=== PATIENT | female | born 1995 | race Caucasian/White ===

== ENCOUNTER 2017-09-16 07:26 | Inpatient (IN) | payer OTHER ==
[2017-09-16] MEDS: ONDANSETRON 4 MG INJ IV ×2 (09:29→14:13)
[2017-09-16 10:01] LABS: ADD MAN DIFF? NO
[2017-09-16 10:08] LABS: ADD UMIC NO; UR ASCORBIC ACID NEGATIVE (NEGATIVE); UR BACTERIA FEW /HPF (NONE SEEN); UR BILIRUBIN (Dip) NEGATIVE (NEGATIVE); UR BLOOD (Dip) NEGATIVE (NEGATIVE); UR CLARITY SLIGHTLY CLOUDY (CLEAR); UR COLOR YELLOW (YELLOW); UR GLUCOSE (Dip) NEGATIVE (NEGATIVE); UR KETONES (Dip) NEGATIVE (NEGATIVE); UR LEUKOCYTE ESTERASE (Dip) NEGATIVE Leu/ul (NEGATIVE); UR NITRITE (Dip) NEGATIVE (NEGATIVE); UR RBC 1 /HPF (0-5); UR SPECIFIC GRAVITY (Dip) 1.023 (1.003-1.030); UR SQUAMOUS EPITHELIAL CELL MODERATE /HPF (FEW); UR TOTAL PROTEIN (Dip) NEGATIVE (NEGATIVE); UR UROBILINOGEN (Dip) 2+ mg/dL (NEGATIVE); UR WBC 0 /HPF (0-5)
[2017-09-16 10:14] LABS: BASOPHILS % 0.3 % (0.0-2.0); EOSINOPHILS # 0.1 10^3/ul (0.0-0.5); EOSINOPHILS % 0.8 % (0.0-7.0); HEMATOCRIT 40.4 % (37.0-47.0); HEMOGLOBIN 14.3 g/dl (12.0-16.0); LYMPHOCYTES # 3.9 10^3/ul (0.8-2.9); LYMPHOCYTES % 33.2 % (15.0-51.0); MEAN CORPUSCULAR HEMOGLOBIN 31.8 pg (29.0-33.0); MEAN CORPUSCULAR HGB CONC 35.4 g/dl (32.0-37.0); MEAN PLATELET VOLUME 9.9 fl (7.4-10.4); MONOCYTE # 0.8 10^3/ul (0.3-0.9); MONOCYTES % 6.9 % (0.0-11.0); NEUTROPHIL # 6.8 10^3/ul (1.6-7.5); NEUTROPHILS % 58.5 % (39.0-77.0); PLATELET COUNT 260 10^3/UL (140-415); RED BLOOD COUNT 4.49 10^6/ul (4.20-5.40); RED CELL DISTRIBUTION WIDTH 11.9 % (11.5-14.5)
[2017-09-16 10:14] LABS: WHITE BLOOD COUNT 11.6 10^3/ul (4.8-10.8)
[2017-09-16 10:24] LABS: ALANINE AMINOTRANSFERASE 43 IU/L (13-69); ALBUMIN 4.3 g/dl (3.3-4.9); ALBUMIN/GLOBULIN RATIO 1.16; ALKALINE PHOSPHATASE 87 IU/L (42-121); ANION GAP 14 (8-16); ASPARTATE AMINO TRANSFERASE 29 IU/L (15-46); BILIRUBIN,INDIRECT 0.7 mg/dl (0-1.1); BILIRUBIN,TOTAL 0.7 mg/dl (0.2-1.3); BLOOD UREA NITROGEN 17 mg/dl (7-20); CALCIUM 9.7 mg/dl (8.4-10.2); CARBON DIOXIDE 26 mmol/L (21-31); CHLORIDE 106 mmol/L (97-110); CREATININE 0.77 mg/dl (0.44-1.00); GLUCOSE 91 mg/dl (70-220); LIPASE 104 U/L (23-300); POTASSIUM 3.9 mmol/L (3.5-5.1); SODIUM 142 mmol/L (135-144)
[2017-09-16] MEDS: SOD CHLORIDE 0.9% 1,000 ML IV (10:25)
[2017-09-16] MEDS: PIPER-TAZO 3.375 GM IV (PMX) 50 ML IVPB (10:25)
[2017-09-16] MEDS: morphine 2 MG INJ IV ×2 (10:25→14:41)
[2017-09-16] MEDS ORDERED: MIDAZOLAM 1 MG/ML 2 ML INJ (13:04)
[2017-09-16] MEDS: BUPIVACAINE 0.5%/EPI (SDV) 30 ML INJ (13:27)
[2017-09-16] MEDS ORDERED: ONDANSETRON 4 MG INJ (13:43)
[2017-09-16] MEDS ORDERED: KETOROLAC 30 MG INJ (13:49)
[2017-09-16] MEDS ORDERED: PROPOFOL 20 ML (13:49)
[2017-09-16] MEDS ORDERED: NEOSTIGMINE 3 MG/3 ML SYRINGE (13:49)
[2017-09-16] MEDS ORDERED: LIDOCAINE 2% (SDV) 5 ML INJ (13:49)
[2017-09-16] MEDS ORDERED: ROCURONIUM 50 MG INJ (13:49)
[2017-09-16] MEDS ORDERED: GLYCOPYRROLATE 0.4 MG INJ (13:49)
[2017-09-16] MEDS ORDERED: METOCLOPRAMIDE 10 MG INJ IV (14:00)
[2017-09-16] MEDS ORDERED: FENTAnyl 50 MCG/ML VIAL IV (14:00)
[2017-09-16] MEDS ORDERED: ONDANSETRON 4 MG INJ IV (14:00)
[2017-09-16] MEDS ORDERED: OXYCODONE/ACETAMINOPHEN (5/325) TAB PO ×2 (14:00)
[2017-09-16] MEDS ORDERED: HYDROmorphONE (0.2 MG/ML) 10ML SYG IV ×2 (14:00→14:04)
[2017-09-16] MEDS ORDERED: MEPERIDINE 25 MG INJ (14:06)
[2017-09-16] MEDS: HYDROmorphONE (0.2 MG/ML) 10ML SYG IV ×4 (14:12→14:37)
[2017-09-16] MEDS: MEPERIDINE 25 MG INJ IV (14:13)
[2017-09-16] MEDS: DIPHENHYDRAMINE 50 MG INJ IV (14:31)
== END 2017-09-16 15:30 | disposition home or self-care (01) | DRG 343 ==
LOC: FTE 07:26 → REC 11:32
PROC: 0DTJ4ZZ Resection of Appendix, Percutaneous Endoscopic Approach (ICD-10-PCS; principal; 2017-09-16 13:00)
DX: K35.80 Unspecified acute appendicitis (principal); E66.01 Morbid (severe) obesity due to excess calories; Z68.30 Body mass index [BMI] 30.0-30.9, adult
CPT/HCPCS: 71045; 74176; 80053; 81001; 81003; 83690; 85025; 88304; 93005; 96374; 96375; 99285-25